=== PATIENT | male | born 1995 | race Caucasian/White ===

== ENCOUNTER → 2019-04-08 17:35 | Outpatient (BNVA) | payer SELFPAY | PROVIDERS: PCP Family Medicine; Visit Provider Family Medicine | DX: R50.9 Fever, unspecified (principal); R05 Cough; J10.1 Influenza due to other identified influenza virus with other respiratory manifestations; J45.21 Mild intermittent asthma with (acute) exacerbation | CPT/HCPCS: 87804 ==

== ENCOUNTER → 2019-11-05 17:53 | Outpatient (BNVA) | payer OTHER, SELFPAY | PROVIDERS: PCP Family Medicine; Visit Provider Nurse Practitioner | DX: B34.9 Viral infection, unspecified (principal); Z20.828 Contact with and (suspected) exposure to other viral communicable diseases | CPT/HCPCS: 87400; 87635 ==

== ENCOUNTER 2020-03-11 12:44 | Emergency (ER) | payer SELFPAY ==
[2020-03-11 13:05] VITALS: BP 155/100; PULSE 84; RESP 16; TEMP 36.5; O2SAT 98; BMI 26.1
[2020-03-11 14:21] LABS: Add Urine Culture? No; Add Urine Microscopic? YES; Amorphous Sediment Urine 4+ /hpf; Bacteria Urine TRACE /hpf; Bilirubin Urine Neg (Negative); Blood Urine Neg (Negative); Glucose Urine UA Norm (Normal); Ketones Urine Negative (Negative); Leukocyte Esterase Urine Negative (Negative); Nitrate Urine Negative (Negative); Protein Urine Neg (Negative); RBC Urine 0-4 /hpf (0-2); Squamous Epithelial Cell Urine 0-4 /hpf (0-5); Urine Appearance Cloudy (CLEAR); Urine Color Yellow (Yellow); Urobilinogen Urine Norm (Negative); pH Urine 6.5 (5-7)
--- NOTE | 2020-03-11 14:53 | ED_ITS ---
HPI - Abdominal Pain General: Chief Complaint: Abdominal Pain Stated Complaint: abdominal pain Time Seen by Provider: 03/11/20 13:31 History of Present Illness: HPI narrative: 24-year-old male into the emergency department with crampy abdominal pain and some abnormal stools. Patient reports that he has had this now for 3 or 4 days. Patient reports he was seen at urgent care yesterday and referred over to the emergency department for further evaluation but he had some things to do when could not come. Patient denies any fever or chills. He does not have any nausea or vomiting. He has never had anything like this before. 2 days ago he had some dark tarry looking stools. Today he had a bowel movement that was normal in appearance. Patient's never had any bright red blood. Patient's not had any prior history of GI problems. No new or different medications. No other symptoms reported besides his crampy abdominal pain without any palliative or provocative factors. MD elicited complaint: abdominal pain Pertinent past history: none Onset (ago): day(s) Pain Consistency: intermittent Location: Diffuse Severity: mild Quality: cramping Migration to: no migration Exacerbating factors: nothing Relieving factors: nothing Associated Symptoms: Reports change in bowel habits and hematochezia; Denies belching, chills and fever(s) Review of Systems General: Reports: 10 or more systems reviewed and unremarkable except in HPI and below Const: Denies: fever(s) or chills ENMT: Denies: throat pain Card: Denies: chest pain Resp: Denies: dyspnea GI: Reports: abdominal pain, change in bowel habits and hematochezia; Denies: belching or white/light colored stool : Denies: flank pain or difficulty urinating [facility] ED PFSH: Social History (Updated 03/11/20 @ 13:10 by Kurtis Lake RN) Smoking and tobacco status: current every day smoker cigarettes Packs smoked per day: 0.5 Alcohol intake: current Substance/Drug Use: current Substance/Drug use frequency: daily Substance/Drug use type: Marijuana Physical Exam Const: COMMON NORMALS: no acute distress, average body habitus, patient oriented x3, no limitations, healthy appearing, alert and well nourished HENMT: COMMON NORMALS: normocephalic HEAD & SCALP: normocephalic Eye: COMMON NORMALS: Equal, round and reactive pupils present, EOMs intact bilaterally and conjunctivae normal CONJUNCTIVA: Yes conjunctivae normal PUPIL: Yes Equal, round and reactive pupils present Neck/C-Spine: COMMON NORMALS: full ROM, no lymphadenopathy, supple, no meningeal signs, no JVD, Thyroid normal and No carotid bruits THYROID: Thyroid normal Resp: COMMON NORMALS: normal respiratory effort, No retractions, No use of accessory muscles, clear to auscultation bilaterally and percussion normal AUSCULTATION: clear to auscultation bilaterally PERCUSSION: percussion normal Cardio: COMMON NORMALS: no JVD GI: COMMON NORMALS: Normal to inspection, nondistended, normoactive bowel soun ds present, Soft to palpation, non-tender, No hepatosplenomegaly present, no masses and no bruits PALPATION: Yes Soft to palpation and Yes No hepatosplenomegaly present : COMMON NORMALS: Yes no CVA tenderness BLADDER/KIDNEY EXAM: Yes no CVA tenderness Back/Pelvis: COMMON NORMALS: no CVA tenderness Extremity: COMMON NORMALS: normal to inspection, full ROM, capillary refill normal, no joint enlargement, no clubbing, cyanosis or edema, no calf tenderness and no pedal edema Neuro: COMMON NORMALS: patient oriented x3 SENSORIUM/ORIENTATION: Yes alert MENINGEAL SIGNS: Yes no meningeal signs Skin: COMMON NORMALS: no rashes or lesions noted, no wounds, turgor normal, no jaundice, no petechiae and no mottling GENERAL SKIN EXAM: no rashes or lesions noted and turgor normal Course Vital Signs: Vital signs: Vital Signs Temperature 97.7 F 03/11/20 13:05 Pulse Rate 84 03/11/20 13:05 Respiratory Rate 16 03/11/20 13:05 Blood Pressure 155/100 03/11/20 13:05 Pulse Oximetry 98 03/11/20 13:05 MDM - Abdominal Pain MDM Narrative: Medical decision making narrative: 24-year-old male with intermittent abdominal pain and some abnormal stools several days earlier. Patient reports a normal stool today. He does not appear to be in any distress his examination is benign. Recommend routine labs and then reexamination and consideration of whether we need to do any imaging. Patient remained stable and does not appear ill or toxic. He has not had any vomiting or diarrhea or abdominal pain since he has been here. There is no focal tenderness on repeat examination. Labs are not particularly remarkable he has some mild elevation of his white count but no fever or other signs or symptoms that suggest appendicitis. I discussed the narrow differential diagnosis as well as some of the diagnostic uncertainty and recommended that we treat him conservatively at this point. I am not sure a CAT scan will help us currently given his history and physical examination and there may be risks. I have discussed return precautions and close follow-up with him and he verbalized understanding. Differential Diagnosis: Differential diagnosis abdominal pain: Likely abdominal pain, acute appendicitis, constipation, diverticulitis and pancreatitis Lab Data: Labs: Lab Results 03/11/20 03/11/20 03/11/20 Range/Units 13:13 14:44 14:44 WBC 10.7 H (4.0-10.0) 10^3/ uL RBC 5.44 H (4.1-5.3) 10^6/u L Hgb 15.7 (11.7-16.6) g/dL Hct 46.6 (42.0-52.0) % MCV 85.7 (80-94) fL MCH 28.9 (28.0-34.0) pg MCHC 33.7 (30.0-36.0) g/dL RDW 12.4 (12.1-15.1) % Plt Count 321 (130-400) 10^3/c mm MPV 9.8 (7.4-10.4) fL Neut % (Auto) 57.3 % Lymph % (Auto) 27.8 % [place] % (Auto) 9.7 % Eos % (Auto) 4.1 % Baso % (Auto) 0.6 % Neut # (Auto) 6.14 (1.8-7.7) 10^3/u L Lymph # (Auto) 3.0 (0.8-4.8) 10^3/u L [place] # (Auto) 1.0 H (0.2-0.9) 10^3/u L Eos # (Auto) 0.4 (0.0-0.8) 10^3/u L Baso # (Auto) 0.1 (0.0-0.1) 10^3/u L Nucleated RBC % (a uto) 0 % Nucleated RBCs # 0.0 /100WBC Sodium 138 (136-145) mmol/L Potassium 4.0 (3.5-5.1) mmol/L Chloride 104 (98-107) mmol/L Carbon Dioxide 26 (22-29) mmol/L Anion Gap 12.0 (5-19) BUN 18 (6-20) mg/dL Creatinine 0.8 (0.7-1.2) mg/dL GFR Calculation 117.8 (90-130) mL/min Glucose 112 (65-115) mg/dL Calculated Osmolal ity 289 (285-295) mOsm/k g Calcium 9.5 (8.5-10.5) mg/dL Total Bilirubin 0.2 (0.15-1.2) mg/dL AST 27 (0-40) U/L ALT 54 H (0-41) U/L Alkaline Phosphata se 86 (40-130) IU/L Total Protein 6.9 (6.6-8.7) g/dL Albumin 4.3 (3.5-5.2) g/dL Globulin 2.6 (1.3-4.6) g/dL Lipase 40 (13-60) U/L Urine Color Yellow (Yellow) Urine Appearance Cloudy (CLEAR) Urine pH 6.5 (5-7) Ur Specific Gravit y 1.020 (1.005-1.030) Urine Protein Neg (Negative) Urine Glucose (UA) Norm (Normal) Urine Ketones Negative (Negative) Urine Blood Neg (Negative) Urine Nitrate Negative (Negative) Urine Bilirubin Neg (Negative) Urine Urobilinogen Norm (Negative) mg/dL Ur Leukocyte [place]ár[place] a[place] Negative (Negative) Urine RBC 0-4 H (0-2) /hpf Urine WBC None (0-5) /hpf Ur Squamous Epith Cells 0-4 H (0-5) /hpf Amorphous Sediment 4+ /hpf Urine Bacteria Trace (NONE) /hpf Discharge Plan Discharge Patient Disposition: Home Clinical Impression: Abdominal pain Qualifiers: Abdominal location: generalized Qualified Code(s): R10.84 - Generalized abdominal pain Condition: Stable Prescriptions: No Action Ex Force See Rx Instructions .ROUTE .COMPLEX RF: 0 Discharge Orders: Discharge ED (Routine); Ordered 03/11/20 Ordered By: Chris Kumari Referrals: Jadiel Fox MD [Primary Care Provider] - Discharge Diet: Full LIquid Discharge Activity: Resume usual activity Patient Instructions: Abdominal Pain (ED) Activity Restrictions/Additional Instructions: 1. [place] or Liquid diet. Push fluids. 2. Follow up in PCP in 1-2 days for recheck. 3. Return to ED for fever, vomiting or recurrent abdominal pain Coding Level of Care Code ED [employer] for Meryg Fwchela Exam Comprehensive
[2020-03-11 14:55] LABS: Basophils # 0.1 10^3/uL (0.0-0.1); Basophils % 0.6 %; Eosinophils # 0.4 10^3/uL (0.0-0.8); Eosinophils % 4.1 %; Hematocrit 46.6 % (42.0-52.0); Hemoglobin 15.7 g/dL (11.7-16.6); Lymphocytes % 27.8 %; Mean Corpuscular HGB Conc 33.7 g/dL (30.0-36.0); Mean Corpuscular Hemoglobin 28.9 pg (28.0-34.0); Mean Corpuscular Volume 85.7 fL (80-94); Mean Platelet Volume 9.8 fL (7.4-10.4); Monocytes % 9.7 %; Neutrophils # 6.14 10^3/uL (1.8-7.7); Neutrophils % 57.3 %; Nucleated Red Blood Cells % 0 %; Platelet Count 321 10^3/cmm (130-400); Red Blood Count 5.44 10^6/uL (4.1-5.3); Red Cell Distribution Width 12.4 % (12.1-15.1); White Blood Count 10.7 10^3/uL (4.0-10.0)
[2020-03-11 15:26] LABS: Alanine Aminotransferase 54 U/L (0-41); Albumin Level 4.3 g/dL (3.5-5.2); Alkaline Phosphatase 86 IU/L (40-130); Aspartate Amino Transferase 27 U/L (0-40); Blood Urea Nitrogen 18 mg/dL (6-20); Calcium 9.5 mg/dL (8.5-10.5); Carbon Dioxide 26 mmol/L (22-29); Chloride 104 mmol/L (98-107); Globulin 2.6 g/dL (1.3-4.6); Glomerular Filtration Rate 117.8 mL/min (90-130); Glucose 112 mg/dL (65-115); Lipase 40 U/L (13-60); Osmolality Calculated 289 mOsm/kg (285-295); Sodium 138 mmol/L (136-145); Total Bilirubin 0.2 mg/dL (0.15-1.2); Total Protein 6.9 g/dL (6.6-8.7)
[2020-03-11 16:08] VITALS: BP 141/69; RESP 17; O2SAT 97
== END 2020-03-11 16:09 | disposition home or self-care (01) ==
PROVIDERS: Physician Assistant; Emergency Provider Family Medicine; PCP Family Medicine
DX: R10.84 Generalized abdominal pain (principal); F17.210 Nicotine dependence, cigarettes, uncomplicated
CPT/HCPCS: 12345; 80053; 81001; 83690; 85025; 99281; 99282

== ENCOUNTER → 2020-03-13 12:27 | Outpatient (BNVA) | payer OTHER, SELFPAY | PROVIDERS: PCP Family Medicine; Visit Provider Nurse Practitioner Family | DX: Z20.828 Contact with and (suspected) exposure to other viral communicable diseases (principal); J06.9 Acute upper respiratory infection, unspecified | CPT/HCPCS: 87635 ==

== ENCOUNTER → 2020-05-05 12:17 | Outpatient (BNVA) | payer OTHER, SELFPAY | PROVIDERS: PCP Family Medicine; Visit Provider Nurse Practitioner Family | DX: Z20.828 Contact with and (suspected) exposure to other viral communicable diseases (principal) | CPT/HCPCS: 87635 ==

== ENCOUNTER 2023-06-06 10:43 | Emergency (ER) | payer SELFPAY ==
[2023-06-06 10:50] VITALS: BP 146/80; PULSE 78; RESP 16; TEMP 36.9; O2SAT 98; BMI 26.5
--- NOTE | 2023-06-06 11:13 | W.ED.UPPEXIN ---
HPI - Extremity Injury (Upper) General: Chief Complaint: Extremity Injury, Upper Stated Complaint: left hand thumb injury Time Seen by Provider: 06/06/23 10:46 Source: patient Mode of arrival: ambulatory Limitations: no limitations History of Present Illness: Patient is a 27-year-old male presents to ED today with complaint of left thumb pain/injury that he sustained 2 days ago after smashing it with a 5 pound mallet hammer. complaint: injury to: left and finger Onset (ago): day(s) Other Extremity Injury: Left: fingers (thumb) Other injuries: none Place: work Severity: moderate Relieving factors: immobilization Exacerbating factors: movement of extremity Context: direct blow Associated symptoms: Reports no associated symptoms Review of Systems Musc: Reports: extremity pain (L thumb), extremity swelling (L thumb) and limited range of motion (L thumb due to swelling/pain) Neuro: Denies: numbness in extremities or sensory changes PFSH ED PFSH: Social History Smoking and tobacco/nicotine status: current every day tobacco/nicotine user cigarettes Packs smoked per day: 0.5 Alcohol intake: current Alcohol intake frequency: holidays/special occasions only Substance/Drug Use: never Physical Exam Const: COMMON NORMALS: no acute distress, average body habitus, patient oriented x3, no limitations, alert and well nourished Extremity: LEFT UPPER EXTREMITY: Yes hand & digits (TTP IP joint and distal phalanx L thumb; edema) Left hand and digits: Yes neurovascular exam (normal) and Yes other (no nail damage or subungual hematoma) Neuro: COMMON NORMALS: patient oriented x3, moves all extremities, no focal motor deficits and no sensory deficits noted SENSORIUM/ORIENTATION: Yes alert Course Vital Signs: Vital signs: Vital Signs Temperature 98.4 F 06/06/23 10:50 Pulse Rate 78 06/06/23 10:50 Respiratory Rate 16 06/06/23 10:50 Blood Pressure 146/80 06/06/23 10:50 Pulse Oximetry 98 06/06/23 10:50 Oxygen Delivery Me thod Room Air 06/06/23 10:50 MDM - Extremity Injury (Upper) Medical Decision Making On one view of patient's x-ray there is a subtle lucency to the distal phalanx that radiologist stated could potentially be a nondisplaced fracture. He will be placed in a splint and will have him follow-up with orthopedics. Medical Records I reviewed the patient's medical records. All radiology interpretation(s) finalized by discharge Discharge Plan Discharge Patient Disposition: Home Clinical Impression: Closed fracture of distal phalanx of left thumb Qualifiers: Encounter type: initial encounter Fracture alignment: nondisplaced Qualified Code(s): S62.525A - Nondisplaced fracture of distal phalanx of left thumb, initial encounter for closed fracture Condition: Stable Prescriptions: No Action acetaminophen 500 mg Tablet 500 mg PO Q6H PRN (Reason: Pain) ibuprofen 600 mg Tablet 1,200 mg PO Q8H PRN (Reason: Pain) naproxen 375 mg Tablet,Delayed Release (Dr/Ec) 375 mg PO Q12H PRN (Reason: Pain) Discharge Orders: Discharge ED (Routine); Ordered 06/06/23 Ordered By: Edel Cardenas Referrals: Jadiel Fox MD [Primary Care Provider] - Patient Instructions: Finger Fracture (ED), Thumb Fracture (ED) Activity Restrictions/Additional Instructions: As we discussed there was a small questionable nondisplaced fracture on one view of your x-rays. Because of this we will place you in a finger splint and have you follow-up with orthopedics. Stand Alone Forms: Work/School Release Coding Level of Care Code ED [employer] for Lona Garnica
--- NOTE | 2023-06-06 11:15 | XR_ITS ---
WS: [id number] Examination: XR finger LT min 2V [id number] Reason for Exam: thumb; smashed/trauma Date: June 06, 2023 Comparison: None. Findings: There is soft tissue swelling. The bone density and the joint spaces are maintained. There is no displaced fracture or dislocation. There is questionable lucency at the base of the dista l phalanx. A nondisplaced fracture could've this appearance Impression: There is soft tissue swelling without a displaced fracture or dislocation. Subtle lucency on the AP hand film suggests potential nondisplaced fracture of the first distal phala nx. If pain continues follow-up in 7 to 10 days is recommended.
[2023-06-06 11:53] VITALS: BP 124/86
--- NOTE | 2023-06-06 12:16 | DCPLANNER ---
Message sent to Ortho for Follow up small questionable nondisplaced fracture on one view of your x-rays. Because of this we will place you in a finger splint and have you follow-up with orthopedics.
== END 2023-06-06 11:55 | disposition home or self-care (01) ==
PROVIDERS: Emergency Provider Physician Assistant; PCP Family Medicine
DX: S62.525A Nondisplaced fracture of distal phalanx of left thumb, initial encounter for closed fracture (principal); F17.210 Nicotine dependence, cigarettes, uncomplicated; W27.8XXA Contact with other nonpowered hand tool, initial encounter
CPT/HCPCS: 73140; 99283

== ENCOUNTER 2025-02-21 14:15 | Emergency (ER) | payer SELFPAY ==
[2025-02-21 14:19] VITALS: PULSE 79; RESP 16; TEMP 36.6; O2SAT 99
--- NOTE | 2025-02-21 14:51 | W.ED.MALEGU ---
HPI - Male Genitourinary General: Chief complaint: Urogenital-Male Stated complaint: R Testical Pain Time Seen by Provider: 02/21/25 14:24 History of Present Illness: 29-year-old male presents to the emergency room with a complaint of right testicle pain. No dysuria urgency or frequency no recent trauma he was doing some heavy lifting felt a strain in that area and has pain in his testicle now. No hematuria. No history of trauma or injury recently. In the remote past patient had a direct blow to the testicles resulting a lot of swelling but did not have any evaluation did not require any surgery or intervention. No previous vasectomies. No fever sweats chills. No dysuria urgency or frequency Associated symptoms: Deny dysuria Related Data Home Medications ?Medication ?Instructions ?Recorded ?Confirmed acetaminophen 500 mg tablet 500 mg PO Q6H PRN Pain 06/06/23 09/25/24 ibuprofen 600 mg tablet 1,200 mg PO Q8H PRN Pain 06/06/23 09/25/24 naproxen 375 mg tablet,delayed 375 mg PO Q12H PRN Pain 06/06/23 09/25/24 release Previous Rx's ?Medication ?Instructions ?Recorded methocarbamol 750 mg tablet 750 mg PO TID 5 days #15 tabs 04/18/24 prednisone 20 mg tablet 40 mg (2 x 20 mg) PO DAILY 5 days 04/18/24 #10 tabs diclofenac sodium 75 mg 75 mg PO Q12H PRN pain #20 tabs 02/21/25 tablet,delayed release Allergies Allergy/AdvReac Type Severity Reaction Status Date / Time No Known Allergies Allergy Verified 09/25/24 07:27 Review of Systems Const: Denies: fever(s) or chills Card: Denies: chest pain Resp: Denies: dyspnea GI: Denies: abdominal pain : Reports: testicular pain (Right); Denies: dysuria, urinary frequency or urinary urgency Musc: Denies: neck pain or back pain Skin/Breast: Denies: rash PFSH ED PFSH: Medical History Allergic contact dermatitis due to plants, except food Social History Smoking and tobacco/nicotine status: never used tobacco/nicotine Alcohol intake: current Alcohol intake frequency: holidays/special occasions only Substance/Drug Use: never Physical Exam Const: COMMON NORMALS: no acute distress GENERAL APPEARANCE: cooperative and comfortable ORIENTATION/CONSCIOUSNESS: Yes awake, Yes oriented to person, Yes oriented to place and Yes oriented to time HENMT: COMMON NORMALS: normocephalic, atraumatic and hearing grossly normal bilaterally HEAD & SCALP: normocephalic and atraumatic Resp: COMMON NORMALS: normal respiratory effort, No retractions, No use of accessory muscles and clear to auscultation bilaterally AUSCULTATION: clear to auscultation bilaterally Cardio: COMMON NORMALS: regular rate, regular rhythm and No murmurs present (Cardio) RATE: regular rate RHYTHM: regular rhythm GI: COMMON NORMALS: Soft to palpation and No hepatosplenomegaly present AUSCULTATION: Yes normoactive bowel sounds PALPATION: Yes Soft to palpation, No Tenderness to palpation present (GI), No Guarding due to palpation present (GI) and Yes No hepatosplenomegaly present Extremity: COMMON NORMALS: normal to inspection, capillary refill normal, no clubbing, cyanosis or edema, no calf tenderness and no pedal edema Neuro: SENSORIUM/ORIENTATION: Yes oriented to person, Yes oriented to place and Yes oriented to time Skin: COMMON NORMALS: no rashes or lesions noted GENERAL SKIN EXAM: no rashes or lesions noted Course Vital Signs: Vital signs: Vital Signs Temperature 98.7 F 02/21/25 16:07 Pulse Rate 87 02/21/25 16:07 Respiratory Rate 18 02/21/25 16:07 Blood Pressure 144/101 02/21/25 16:07 Pulse Oximetry 97 02/21/25 16:07 Oxygen Delivery Me thod Room Air 02/21/25 14:19 MDM - Male Medical Decision Making Medical decision making Social determinants: None I reviewed the patient's medical record. I reviewed the patient's current home meds. Alternate historians: None Differential diagnosis: Epididymitis, orchitis, testicular torsion, ilioinguinal strain Lab Review: Labs unremarkable CBC normal chemistries show normal electrolytes normal kidney function UA does not show any sign of infection Imaging: Scrotal ultrasound unremarkable good flow to the testicles. No epididymal congestion or swellingNo abnormalities of the parenchyma of the testes. No evidence of orchitis no evidence of torsion no calcifications Assessment of risk Level of risk: Low Hospitalization considerations: No indication for hospitalization Reexamination: Improved with medications Assessment and plan: Pain improved with medicines but not resolved. Pain is reproducible to palpation of the inguinal ligament region suspect he strained ligament itself or some of the adductor's in that region. Pain is reproducible palpation there is no sign of an inguinal hernia. No other acute abdominal signs. Discharge patient home with anti-inflammatories have follow-up his primary care doctor return if has worsening symptoms. Lab Data 02/21/25 14:48 02/21/25 14:48 Radiology Impressions Scrotum Ultrasound 02/21/25 14:52 Impression: Negative bilateral scrotal and testicular ultrasound. Laboratory Results WBC 10.27 10^3/uL (3.29-11.43) 02/21/25 14:48 RBC 5.47 10^6/uL (3.85-5.65) 02/21/25 14:48 Hgb 15.50 g/dL (11.27-16.99) 02/21/25 14:48 Hct 45.7 % (37-53) 02/21/25 14:48 MCV 83.5 fl (82-101) 02/21/25 14:48 MCH 28.3 pg (27-33) 02/21/25 14:48 MCHC 33.9 g/dL (30-55) 02/21/25 14:48 RDW 12.3 % (12.1-15.1) 02/21/25 14:48 Plt Count 342 10^3/cmm (157-399) 02/21/25 14:48 MPV 9.4 fL (7.4-10.4) 02/21/25 14:48 Neut % (Auto) 52.7 % 02/21/25 14:48 Lymph % (Auto) 35.3 % 02/21/25 14:48 [place] % (Auto) 8.3 % 02/21/25 14:48 Eos % (Auto) 2.9 % 02/21/25 14:48 Baso % (Auto) 0.5 % 02/21/25 14:48 Neut # (Auto) 5.41 10^3/uL (1.8-7.7) 02/21/25 14:48 Lymph # (Auto) 3.6 10^3/uL (0.8-4.8) 02/21/25 14:48 [place] # (Auto) 0.9 10^3/uL (0.2-0.9) 02/21/25 14:48 Eos # (Auto) 0.3 10^3/uL (0.0-0.8) 02/21/25 14:48 Baso # (Auto) 0.1 10^3/uL (0.0-0.1) 02/21/25 14:48 Nucleated RBC % (auto) 0 % 02/21/25 14:48 Nucleated RBCs # 0.0 /100WBC 02/21/25 14:48 Sodium 139 mmol/L (136-145) 02/21/25 14:48 Potassium 4.2 mmol/L (3.5-5.1) 02/21/25 14:48 Chloride 102 mmol/L (98-107) 02/21/25 14:48 Carbon Dioxide 27 mmol/L (22-29) 02/21/25 14:48 Anion Gap 14.2 (5-19) 02/21/25 14:48 BUN 19 mg/dL (6-20) 02/21/25 14:48 Creatinine 0.9 mg/dL (0.7-1.2) 02/21/25 14:48 GFR Calculation 99.1 mL/min (90-130) 02/21/25 14:48 Glucose 89 mg/dL (65-115) 02/21/25 14:48 Calculated Osmolality 290 mOsm/kg (285-295) 02/21/25 14:48 Calcium 9.7 mg/dL (8.5-10.5) 02/21/25 14:48 Urine Color Yellow (Yellow) 02/21/25 15:11 Urine Appearance Clear (CLEAR) 02/21/25 15:11 Urine pH 6.5 (5-7) 02/21/25 15:11 Ur Specific [place] 1.026 (1.005-1.030) 02/21/25 15:11 Urine Protein Negative (Negative) 02/21/25 15:11 Urine Glucose (UA) Negative (Normal) 02/21/25 15:11 Urine Ketones Trace (Negative) 02/21/25 15:11 Urine Blood Negative (Negative) 02/21/25 15:11 Urine Nitrate Negative (Negative) 02/21/25 15:11 Urine Bilirubin Negative (Negative) 02/21/25 15:11 Urine Urobilinogen 1.0 mg/dL (Negative) 02/21/25 15:11 Ur Leukocyte Esterase Negative (Negative) 02/21/25 15:11 Urine RBC 0-2 /hpf (0-2) 02/21/25 15:11 Urine WBC 0-5 /hpf (0-5) 02/21/25 15:11 Ur Squamous Epith Cells 0-5 /hpf (0-5) 02/21/25 15:11 Amorphous Sediment Not Reportable 02/21/25 15:11 Urine Bacteria None seen /hpf (NONE) 02/21/25 15:11 Hyaline Casts 0-4 /lpf H 02/21/25 15:11 All radiology interpretation(s) finalized by discharge Discharge Plan Discharge Patient Disposition: Home Clinical Impression: Inguinal strain Condition: Stable Prescriptions: New diclofenac sodium 75 mg tablet,delayed release (DR/EC) 75 mg PO Q12H PRN (Reason: pain) Qty: 20 0RF No Action prednisone 20 mg tablet 40 mg PO DAILY 5 Days Qty: 10 0RF methocarbamol 750 mg tablet 750 mg PO TID 5 Days Qty: 15 0RF acetaminophen 500 mg Tablet 500 mg PO Q6H PRN (Reason: Pain) ibuprofen 600 mg Tablet 1,200 mg PO Q8H PRN (Reason: Pain) naproxen 375 mg Tablet,Delayed Release (Dr/Ec) 375 mg PO Q12H PRN (Reason: Pain) Discharge Orders: Discharge ED (Routine); Ordered 02/21/25 Ordered By: Cornelio Huff Discharge Diet: Usual diet Discharge Activity: Increase activity as tolerated Patient Instructions: Opioid Safety, Pain Management, Patient Portal & Vanessa Instructions Activity Restrictions/Additional Instructions: Thank you for choosing [facility] for your healthcare needs today. It is very important that you follow up as instructed or that you return to the Emergency Department should you have concerns or if your condition changes or worsens in any way. Emergency department visits are focused on emergent conditions, in some cases you may require further evaluation on an outpatient basis. You were seen in the emergency room with a complaint of strain in the groin and testicular pain. Ultrasound did not show any particular abnormalities your lab tests were otherwise negative including urine specimen. Suspect you have a strain in the groin from the heavy lifting you can use diclofenac as needed. (Please note that included in your discharge packet is information concerning opioid safety and pain management. This information is given to all patients were discharged from the ER regardless of their discharge diagnosis or the medicines they usually take or are prescribed.) Stand Alone Forms: Work/School Release Print Language: [place] Coding Level of Care Code ED [employer] for Lona Garnica
--- NOTE | 2025-02-21 14:52 | US_ITS ---
WS: [id number] Scrotal and testicular ultrasound, Clinical Data: Pain Comparison: None. Findings: The right testes measures 4.5 cm x 3.0 cm x 2.0 cm. The right epididymis was 0.8 cm. The left testes measures 4.2 cm x 2.8 cm x 2.1 cm. Left epididymis was 0.8 cm. There is normal bilateral blood flow with no evidence of orchitis or torsion. No masses or abnormal calcifications are noted. US/US scrotum [id number] Impression: Negative bilateral scrotal and testicular ultrasound.
[2025-02-21 14:59] LABS: Hematocrit 45.7 % (37-53); Hemoglobin 15.50 g/dL (11.27-16.99); Mean Corpuscular HGB Conc 33.9 g/dL (30-55); Mean Corpuscular Hemoglobin 28.3 pg (27-33); Mean Corpuscular Volume 83.5 fl (82-101); Nucleated Red Blood Cells % 0 %; Platelet Count 342 10^3/cmm (157-399); Red Blood Count 5.47 10^6/uL (3.85-5.65); White Blood Count 10.27 10^3/uL (3.29-11.43)
[2025-02-21 15:15] LABS: Anion Gap 14.2 (5-19); Blood Urea Nitrogen 19 mg/dL (6-20); Calcium 9.7 mg/dL (8.5-10.5); Carbon Dioxide 27 mmol/L (22-29); Chloride 102 mmol/L (98-107); Glucose 89 mg/dL (65-115); Osmolality Calculated 290 mOsm/kg (285-295); Potassium 4.2 mmol/L (3.5-5.1); Sodium 139 mmol/L (136-145)
[2025-02-21 15:22] LABS: Glucose Urine UA Negative (Normal); Nitrate Urine Negative (Negative); Specific Gravity, Urine 1.026 (1.005-1.030)
[2025-02-21 15:27] LABS: Add Urine Microscopic? YES
[2025-02-21 16:07] VITALS: BP 144/101; PULSE 87; RESP 18; TEMP 37.1; O2SAT 97
== END 2025-02-21 16:11 | disposition home or self-care (01) ==
PROVIDERS: Emergency Provider Family Medicine
DX: S76.811A Strain of other specified muscles, fascia and tendons at thigh level, right thigh, initial encounter (principal); X50.0XXA Overexertion from strenuous movement or load, initial encounter
CPT/HCPCS: 36415; 76870; 80048; 81001; 85025; 99284